=== PATIENT | female | born 1950 | race Caucasian/White ===

== ENCOUNTER 2019-05-10 16:31 | Emergency (ER) | payer MEDICARE, MEDICAID ==
[2019-05-10 16:54] VITALS: BP 132/49
--- NOTE | 2019-05-10 17:10 | UC ---
Upper Extremity HPI - HPI Summary HPI Summary: Pt is accompanied by sister. Pt c/o left upper arm swelling. Sister noticed that pt's left upper arm looked bigger than the right and pt states that she noticed that the upper arm is tender to touch. Denies injury. Denies hx of DVT , denies hx of erythema or bursitis - History of Current Complaint Chief Complaint: UCUpperExtremity Stated Complaint: LEFT ARM SWOLLEN Time Seen by Provider: 05/10/19 16:39 Hx Obtained From: Patient Hx Last Menstrual Period: Age 41 ?: No Onset/Duration: Gradual Onset, Other - unsure of lenght of time Severity Initially: Mild Severity Currently: Mild Pain Intensity: 2 Location Of Pain: Is Diffuse - left upper arm Aggravating Factor(s): Other - palpation Alleviating Factor(s): Rest Associated Signs And Symptoms: Positive: Swelling Related History: Dominant Hand Right - Risk Factors Non-Orthopedic Risk Factor: Negative DVT Risk Factors: Negative Septic Arthritis Risk Factor: Negative Compartment Syndrome Risk Factors: Pain - Allergies/Home Medications Allergies/Adverse Reactions: Allergies Allergy/AdvReac Type Severity Reaction Status Date / Time No Known Allergies Allergy Verified 05/10/19 16:41 Home Medications: Home Medications Aspirin [Aspir-Low] 81 mg PO DAILY 05/10/19 [History Confirmed 05/10/19] Omeprazole 40 mg PO DAILY 05/10/19 [History Confirmed 05/10/19] PMH/Surg Hx/FS Hx/Imm Hx Previously Healthy: Yes - Surgical History Surgical History: Yes Surgery Procedure, Year, and Place: thyroidectomy, cholecystectomy 2003-01 - Family History Known Family History: Positive: Cardiac Disease - Social History Occupation: Retired Lives: With Family Alcohol Use: Weekly Alcohol Amount: 2-3 beers Substance Use Type: None Smoking Status (MU): Light Every Day Tobacco Smoker Have You Smoked in the Last Year: Yes Review of Systems All Other Systems Reviewed And Are Negative: Yes Constitutional: Positive: Negative Skin: Positive: Negative Eyes: Positive: Negative ENT: Positive: Negative Respiratory: Positive: Negative Cardiovascular: Positive: Negative Gastrointestinal: Positive: Negative Genitourinary: Positive: Negative Motor: Positive: Negative Neurovascular: Positive: Negative Musculoskeletal: Positive: Edema - left upper arm Neurological: Positive: Negative Psychological: Positive: Negative Is Patient Immunocompromised?: No Physical Exam Triage Information Reviewed: Yes Appearance: Obese Vital Signs: Initial Vital Signs Temp 98.2 F 05/10/19 16:45 Pulse 92 05/10/19 16:45 Resp 18 05/10/19 16:45 BP 132/49 05/10/19 16:45 Pulse Ox 97 05/10/19 16:45 Vital Signs Reviewed: Yes Eye Exam: Normal ENT Exam: Normal Dental Exam: Normal Neck exam: Normal Respiratory: Positive: No respiratory distress Musculoskeletal: Positive: Edema @ - left upper arm measured 44.5 cm right upper arm measured 41 cm Neurological Exam: Normal Psychological Exam: Normal Skin Exam: Normal Upper Extremity Course/Dx - Differential Dx/Diagnosis Differential Diagnosis/HQI/PQRI: Bursitis, Other - I discussed with the pt the need f/u with her PCP pt verbalized understanding and agreed to plan of care Provider Diagnosis: Left upper extremity swelling Discharge - Sign-Out/Discharge Documenting (check all that apply): Patient Departure All imaging exams completed and their final reports reviewed: No Studies - Discharge Plan Condition: Stable Disposition: HOME Patient Education Materials: Arm Pain (ED) Referrals: Maira Haley PA [Primary Care Provider] - As Soon As Possible - Billing Disposition and Condition Condition: STABLE Disposition: Home
== END 2019-05-10 17:16 | disposition home or self-care (01) ==
LOC: UCCORT 16:31
DX: R22.32 Localized swelling, mass and lump, left upper limb (principal); F17.210 Nicotine dependence, cigarettes, uncomplicated; Z79.82 Long term (current) use of aspirin
CPT/HCPCS: 99211; G0463